=== PATIENT | male | born 2000 | race Caucasian/White ===

== ENCOUNTER → 2022-04-07 07:11 | Outpatient (CLI) | payer OTHER, SELFPAY ==
--- NOTE | ~2022-04-07 | XR_ITS ---
EXAMINATION: XR knee RT min 4V DATE: 04/07/2022 07:27 INDICATION: Anterior right knee pain. TECHNIQUE: 4 views of right knee were obtained. COMPARISON: None. FINDINGS: Bone alignment is normal. No fracture. Joint spaces are well maintained. There is no knee j oint effusion. IMPRESSION: 1. Normal right knee. Reviewed, dictated and finalized at location A. IMPRESSION: 1. Normal right knee.
== END ==
PROVIDERS: PCP Physician Assistant; Visit Provider Physician Assistant
DX: M25.561 Pain in right knee (principal)
CPT/HCPCS: 73564

== ENCOUNTER 2022-05-28 07:47 | Outpatient (CLI) | payer OTHER, SELFPAY ==
--- NOTE | 2022-06-23 17:19 | WPDSLEEPSTUD ---
Sleep Study Date of Study: 05/28/22 Ordering Provider: Kaleigh Wallace, DENG Interpreting Physician: Leah Salcedo MD Sleep Study Type: Polysomnogram Height: 1.85 m Weight: 147.418 kg Body Mass Index: 42.8 Neck Circumference (inches): 17 [place]: 12 Reason for Sleep Study Occasional sleep walking, occasional difficulties breathing during sleep Sleep History Kadeem Cohen is a 21-year-old male who presents for in-lab basic sleep study due to complaints of occasional sleep walking and occasionally difficulties breathing during sleep. he has occasional sleep talking. He has a difficult time waking in the morning. He is excessively sleepy in the daytime. 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 There is a family history of sleep problems, his father uses CPAP. He rarely awakens from sleep feeling short of breath. He does not awaken at night with heartburn, belching or coughing. He has acid reflux, and he takes famotidine. He frequently snores, however rarely snores loudly enough that others complain. He does not have trouble sleeping with a cold. He rarely wakes up gasping for breath at night. He rarely has breathing problems at night observed by others. He rarely sweats excessively at night. He does not notice his heart pounding or beating irregularly at night. He does not fall asleep during the day. He does not fall asleep involuntarily or while driving. He does not have loss of muscle tone with strong emotion. He rarely has daytime difficulties due to excessive sleepiness. He does not feel paralyzed on waking or falling asleep. He occasionally has vivid dreamlike scenes on waking or falling asleep. He rarely feels afraid to go to sleep. He occasionally has nightmares. He frequently remembers his dreams. He frequently has racing thoughts. He occasionally feels sad or depressed. He always has anxiety. He rarely has muscular tension. He occasionally notices parts of his body jerking. He rarely kicks at night. He never has crawling or aching feelings in his legs. He rarely has leg pain at night. He does not have morning jaw pain. He rarely grinds his teeth during sleep. He constantly is bothered by pain during the day. He rarely is awakened by pain at night. He does not wake up feeling stiff in the morning with sore achy muscles or awaken with pain in the neck and spine. He has nightmares and he takes antacids regularly. He reports a weight gain in the last 12 months. [facility]. Normal bedtime is 9:00 p.m. falling asleep within 20 minutes, waking usually once at night for about 5 minutes. While awake he will try to return to sleep. He wakes the morning at 4:00 a.m.. On weekends, he goes to bed at 11:00 p.m. and wakes at 7:00 a.m.. He estimates getting an average 6 hours of sleep at night. He does not generally take naps. A short nap lasting 10 or 15 minutes may be refreshing. Most of the time he feels good in the morning. He feels better in the afternoon compared to other times of day. Habits: Quit tobacco 1 year ago. Caffeine 1 serving a day. Alcohol 1 serving per week. No recreational substance. [facility] Past Medical History Medical History (Updated 06/23/22 @ 17:56 by Leah Salcedo MD) Acid reflux Anxiety disorder Sleep Procedure This test was performed using the 4th aspect [employer] multiple channel system including EOG, EEG, submental EMG, EKG, nasal and oral airflow using thermistors and nasal pressure sensors, chest and abdominal belts for body position data, and pulse oximetry. Video monitoring was also performed. The study was scored using [facility] guidelines. This was ordered as a split night study however the patient did not meet criteria during the study so it was performed as a basic nocturnal polysomnogram. Sleep Architecture Recording time is time is 528.1 minutes. the sleep time is 475 minutes. The sleep efficiency os
[2022-06-23 18:07] VITALS: BMI 42.8
--- NOTE | 2022-08-31 15:19 | SLEEP ---
# not in service
== END 2022-05-29 06:57 | disposition home or self-care (01) ==
LOC: ANHCSM 07:49
PROVIDERS: PCP Physician Assistant; Visit Provider Physician Assistant
DX: G47.33 Obstructive sleep apnea (adult) (pediatric) (principal); Z68.41 Body mass index [BMI] 40.0-44.9, adult
CPT/HCPCS: 95810